=== PATIENT | female | born 1965 | race Caucasian/White ===

== ENCOUNTER 2024-01-04 16:27 | Inpatient (IN) | payer OTHER ==
[2024-01-04 17:09] LABS: BASOPHILS PERCENT AUTO 0.4 % (0.2-1.5); EOSINOPHILS PERCENT AUTO 0.1 % (0.6-8.1); HEMATOCRIT 48.4 % (34.2-48.2); HEMOGLOBIN 16.6 g/dL (11.4-15.5); LYMPHOCYTES ABSOLUTE AUTO 1.2 x10-3/uL (1.0-4.4); LYMPHOCYTES PERCENT AUTO 14.2 % (18.4-52.1); MEAN CORPUSCULAR HEMOGLOBIN 35.2 pg (23.9-33.9); MEAN CORPUSCULAR HGB CONC 34.2 g/dL (31.9-34.8); MEAN CORPUSCULAR VOLUME 103.1 fL (76.7-100.5); MEAN PLATELET VOLUME 6.4 fL (7.1-12.4); MONOCYTES ABSOLUTE AUTO 0.6 x10-3/uL (0.3-1.0); MONOCYTES PERCENT AUTO 7.3 % (4.4-15.7); NEUTROPHILS ABSOLUTE AUTO 6.8 x10-3/uL (1.5-6.3); PLATELET COUNT,PLT 151 x10(3)uL (151-488); RED CELL DISTRIBUTION WIDTH 12.9 % (12.3-16.5); WHITE BLOOD CELL COUNT,WBC 8.8 x10-3/uL (3.0-10.3)
[2024-01-04 17:18] LABS: A/G RATIO 0.8; ALANINE AMINOTRANSFERASE,ALT 35 U/L (12-36); ALBUMIN 3.5 g/dL (3.5-5.2); ALKALINE PHOSPHATASE 144 IU/L (56-112); ASPARTATE AMNIOTRANSFERASE,AST 29 IU/L (5-25); BILIRUBIN TOTAL 0.9 mg/dL (0.1-1.3); BLOOD UREA NITROGEN,BUN 5 mg/dL (7-18); CALCIUM 8.8 mg/dL (8.6-10.2); CARBON DIOXIDE,CO2 26 mmol/L (21-32); CHLORIDE,CL 90 mmol/L (100-110); CREATININE 0.5 mg/dL (0.55-1.02); ESTIMATED GFR 109 mL/min (>60); GLUCOSE RANDOM 94 mg/dL (80-116); INR 1.08 (1.00-1.24); POTASSIUM,K 4.1 mmol/L (3.5-5.3); PROTEIN TOTAL,TP 7.8 g/dL (6.0-8.0); PROTHROMBIN TIME 11.1 sec (9.0-11.1); PTT,PARTIAL THROMBOPLSTIN TIME 25.9 SECONDS (24.4-33.2); SODIUM,NA 128 mmol/L (135-145)
[2024-01-04] MEDS: Acetaminophen 325 MG Tab PO PRN (18:08)
[2024-01-04] MEDS: Apixaban 5 MG Tab PO SCH (18:08)
[2024-01-04] MEDS: Iopamidol 755 Mg/ML 100 ML Bottle IV ONE (18:44)
[2024-01-05] MEDS: Sodium Chloride 0.9% 10 ML Syringe FLUSH PRN (08:45)
[2024-01-05] MEDS: Heparin Sodium/0.45% NaCl 25,000 UNITS/500 ML BAG IV SCH (08:47)
[2024-01-05 08:58] LABS: HEMOGLOBIN 15.7 g/dL (11.4-15.5); WHITE BLOOD CELL COUNT,WBC 6.2 x10-3/uL (3.0-10.3)
[2024-01-05 09:00] LABS: BASOPHILS PERCENT AUTO 0.6 % (0.2-1.5); EOSINOPHILS PERCENT AUTO 0.6 % (0.6-8.1); LYMPHOCYTES PERCENT AUTO 16.2 % (18.4-52.1); MEAN CORPUSCULAR HEMOGLOBIN 35.2 pg (23.9-33.9); MEAN CORPUSCULAR HGB CONC 34.2 g/dL (31.9-34.8); MEAN CORPUSCULAR VOLUME 102.9 fL (76.7-100.5); MEAN PLATELET VOLUME 6.6 fL (7.1-12.4); MONOCYTES ABSOLUTE AUTO 0.5 x10-3/uL (0.3-1.0); MONOCYTES PERCENT AUTO 8.8 % (4.4-15.7); NEUTROPHILS ABSOLUTE AUTO 4.6 x10-3/uL (1.5-6.3); NEUTROPHILS PERCENT AUTO 73.8 % (30.8-76.2); PLATELET COUNT,PLT 142 x10(3)uL (151-488); RED BLOOD CELL COUNT 4.47 x10(6)uL (3.60-5.20)
[2024-01-05 09:09] LABS: BLOOD UREA NITROGEN,BUN 5 mg/dL (7-18); CALCIUM 8.9 mg/dL (8.6-10.2); CARBON DIOXIDE,CO2 30 mmol/L (21-32); CHLORIDE,CL 96 mmol/L (100-110); CREATININE 0.5 mg/dL (0.55-1.02); EST CRCL DRUG DOSING (CG) 76.46 mL/min; ESTIMATED GFR 109 mL/min (>60); GLUCOSE RANDOM 109 mg/dL (80-116); POTASSIUM,K 3.6 mmol/L (3.5-5.3); SODIUM,NA 133 mmol/L (135-145)
[2024-01-06 18:07] LABS: URINE OSMOLALITY 110 mOsm/kg (50-800)
[2024-01-06 18:07] LABS: OSMOLALITY 270 mOsm/kg (280-303)
[2024-01-07 05:02] LABS: CREATININE, URINE - PER VOLUME 18 mg/dL; HOURS COLLECTED Random hr; SODIUM, URINE - PER VOLUME <20 mmol/L; TOTAL VOLUME Random mL
== END 2024-01-05 15:10 | DRG 299 ==
LOC: FB.MS 16:27
PROVIDERS: ADMIT Internal Medicine; ATTEND Internal Medicine
DX: I82.412 Acute embolism and thrombosis of left femoral vein (principal); I26.99 Other pulmonary embolism without acute cor pulmonale; E87.1 Hypo-osmolality and hyponatremia; I82.422 Acute embolism and thrombosis of left iliac vein; Z98.890 Other specified postprocedural states; C01 Malignant neoplasm of base of tongue
CPT/HCPCS: 36415; 71275; 80048; 80053; 83930; 83935; 84300; 85025; 85610; 85730; 93005; 93010; 99222; 99238; A9270-GY; J1644; J3490; Q9967